=== PATIENT | male | born 1975 | race Caucasian/White ===

== ENCOUNTER 2023-03-31 11:00 | Emergency (ER) | payer BC, SELFPAY ==
[2023-03-31 11:01] VITALS: BP 145/93; PULSE 60; RESP 18; TEMP 36.6; O2SAT 97; BMI 36.5
[2023-03-31 11:15] LABS: Coronavirus 19, PCR Not Detected (NotDetected); Influenza A, PCR Not Detected (NotDetected); Influenza B, PCR Not Detected (NotDetected)
--- NOTE | 2023-03-31 11:25 | XR_ITS ---
PROCEDURE INFORMATION: Exam: XR Chest Exam date and time: 03/31/2023 11:20 AM Age: 47 years old Clinical indication: Cough and shortness of breath; Additional info: Cough. Smoker x whole life TECHNIQUE: Imaging protocol: Radiologic exam of the chest. Views: 2 views. COMPARISON: No relevant prior studies available. FINDINGS: Lungs: No focal airspace disease. Pleural spaces: Unremarkable. No pleural effusion. No pneumothorax. Heart/Mediastinum: Cardiomediastinal silhouette is within normal limits. Bones/joints: Unremarkable. IMPRESSION: No acute cardiopulmonary abnormality.
[2023-03-31 11:36] VITALS: BP 144/91; PULSE 70; O2SAT 99
[2023-03-31 11:45] VITALS: BP 124/88; PULSE 66; O2SAT 100
--- NOTE | 2023-03-31 11:59 | HMH.EDGENADL ---
Discharge Plan Disposition Patient Disposition: Home, Self-Care Prescriptions Prescriptions: New albuterol sulfate 90 mcg/actuation HFA aerosol inhaler 4 inh inhalation Q4H PRN (Reason: shortness of breath or wheezing) Qty: 8.5 0RF Rx Instructions: 4 puffs every 4 hours for 48 hours then as needed for shortness of breath or wheezing following amoxicillin-pot clavulanate 875-125 mg tablet 1 tab PO BID 7 Days Qty: 14 0RF No Action azithromycin 250 mg tablet 250 mg PO QDAY 5 Days Qty: 6 0RF Rx Instructions: ii tabs day one, i tab days 2-5 methocarbamol 500 mg tablet 500 mg PO DAILY Patient Comments: TAKE 1 TABLET BY MOUTH 2 TIMES DAILY. INDICATIONS: NEEDED ibuprofen 800 mg tablet 800 mg PO DAILY Patient Comments: TAKE 1 TABLET BY MOUTH 3 TIMES DAILY. INDICATIONS: NEEDED omeprazole 40 mg capsule,delayed release(DR/EC) 40 mg PO DAILY Referrals Follow up/Referrals: Deepak Quiros [Primary Care Provider] - See instructions Susan Delarosa MD [Physician] - See instructions (for evaluation of your probable COPD ) Clinical Impressions Clinical Impression: Bronchitis, Reactive airway disease, Encounter for smoking cessation counseling Discharge ED Provider: Larisa Chung General Adult HPI General Chief complaint: Upper Respiratory Infection Stated complaint: cough, SOA Time Seen by Provider: 03/31/23 11:18 Mode of Arrival: Ambulatory Source of Information: Patient Limitations: No Limitations Description of Symptoms (Recalled from ER Triage Doc. by RN): pt states he has had a productive cough, congestion, runy nose, and sore throat for a week, states he had a telehealth visit sunday where they prescribed him a zpack, denies fever, states sputum has been green and snot has been clear History of Present Illness HPI narrative: Patient is a 47-year-old male with a history of chronic smoking he smoked 1 pack/day for the last 30 years presents today with 1 week of productive cough congestion wheezing. States he had a telemedicine appointment with his primary care doctor was prescribed Z-Mekhi few days ago without any significant improvement in his symptoms. No steroids were administered he does not carry a diagnosis of COPD. Related Data Home Medications Medication Instructions Recorded Confirmed ibuprofen 800 mg tablet 800 mg PO DAILY 03/31/23 03/31/23 methocarbamol 500 mg tablet 500 mg PO DAILY 03/31/23 03/31/23 omeprazole 40 mg capsule,delayed 40 mg PO DAILY 03/31/23 03/31/23 release Previous Rx's Medication Instructions Recorded azithromycin 250 mg tablet 250 mg PO QDAY sinusitis 5 days #6 05/06/19 tabs albuterol sulfate 90 mcg/actuation 4 inh inhalation Q4H PRN shortness 03/31/23 aerosol inhaler of breath or wheezing #8.5 grams amoxicillin 875 mg-potassium 1 tab PO BID 7 days #14 tabs 03/31/23 clavulanate 125 mg tablet Allergies Allergy/AdvReac Type Severity Reaction Status Date / Time From Ketorolac Tromethamine Allergy Intermediate I-HIVES Uncoded 05/06/19 17:13 PCN (penicillin) Allergy Unknown Uncoded 05/06/19 17:13 [facility] Disclaimer: The information contained in this section may have been updated after the patient was seen, as this information can be updated by other users. Social History Smoking Status: Never smoker alcohol intake: current current occupational status: employed Travel in the last 8 weeks: None ROS Obtained: Yes All systems reviewed & no additional complaints except as documented Physical Exam General General appearance: alert Respiratory Respiratory exam: Present wheezes and other (Speaking in full sentences oxygen saturations normal on room air); Absent respiratory distress, stridor, accessory muscle use or prolonged expiratory phase Cardiovascular Cardiovascular exam: Present regular rate; Absent tachycardia Neurological Exam Neurological exam: Present alert and oriented [facility]
[2023-03-31 12:04] VITALS: BP 142/88; PULSE 91; RESP 18; TEMP 36.8
== END 2023-03-31 12:05 | disposition home or self-care (01) ==
PROVIDERS: Emergency Provider Student in an Organized Health Care Education/Training Program; PCP Family Medicine
DX: J20.9 Acute bronchitis, unspecified (principal); R06.02 Shortness of breath; J45.909 Unspecified asthma, uncomplicated; F17.210 Nicotine dependence, cigarettes, uncomplicated; Z71.6 Tobacco abuse counseling
CPT/HCPCS: 71046; 87636; 99283

== ENCOUNTER 2023-04-20 04:03 | Emergency (ER) | payer BC, SELFPAY ==
[2023-04-20 04:11] VITALS: BP 133/84; PULSE 77; RESP 15; TEMP 36.6; O2SAT 98; BMI 36.5
--- NOTE | 2023-04-20 04:13 | XR_ITS ---
PROCEDURE INFORMATION: Exam: XR Chest Exam date and time: 04/20/2023 4:15 AM Age: 47 years old Clinical indication: Cough; Additional info: Cough recent bronchitis TECHNIQUE: Imaging protocol: Radiologic exam of the chest. Views: 1 view. COMPARISON: CR XR CHEST 2V 03/31/2023 11:20 AM FINDINGS: Lungs: Unremarkable. No consolidation. Pleural spaces: Unremarkable. No pleural effusion. No pneumothorax. Heart/Mediastinum: Unremarkable. No cardiomegaly. Bones/joints: Unremarkable. IMPRESSION: No acute findings.
--- NOTE | 2023-04-20 04:20 | HMH.EDGENADL ---
Discharge Plan Disposition Patient Disposition: Home, Self-Care Condition: Fair Prescriptions Prescriptions: New Paxlovid 300 mg (150 mg x 2)-100 mg tablets,dose pack See Rx Instructions .ROUTE .COMPLEX Qty: 30 0RF Rx Instructions: take TWO 150 mg tablets of nirmatrelvir with ONE 100 mg tablet of ritonavir twice daily for 5 days No Action azithromycin 250 mg tablet 250 mg PO QDAY 5 Days Qty: 6 0RF Rx Instructions: ii tabs day one, i tab days 2-5 methocarbamol 500 mg tablet 500 mg PO DAILY Patient Comments: TAKE 1 TABLET BY MOUTH 2 TIMES DAILY. INDICATIONS: NEEDED ibuprofen 800 mg tablet 800 mg PO DAILY Patient Comments: TAKE 1 TABLET BY MOUTH 3 TIMES DAILY. INDICATIONS: NEEDED omeprazole 40 mg capsule,delayed release(DR/EC) 40 mg PO DAILY albuterol sulfate 90 mcg/actuation HFA aerosol inhaler 4 inh inhalation Q4H PRN (Reason: shortness of breath or wheezing) Qty: 8.5 0RF Rx Instructions: 4 puffs every 4 hours for 48 hours then as needed for shortness of breath or wheezing following amoxicillin-pot clavulanate 875-125 mg tablet 1 tab PO BID 7 Days Qty: 14 0RF Referrals Follow up/Referrals: Deepak Quiros [Primary Care Provider] - See instructions Activity Restrictions/Add. Instructions Additional Instructions/Restrictions: You were evaluated in the emergency department today for cough. You are positive for COVID. You have been prescribed Paxlovid, take this as directed. Avoid contact with other people per CDC recommendations for the next 5 days. Wash your hands to avoid spread. Make an appointment with your primary care physician for reevaluation in 2 to 3 days. Return to the emergency department with any new, worsening, or otherwise concerning symptoms. Clinical Impressions Clinical Impression: COVID-19 Discharge ED Provider: Anshu Navas General Adult HPI General Chief complaint: Upper Respiratory Infection Stated complaint: cough, SOA Time Seen by Provider: 04/20/23 04:07 History of Present Illness HPI narrative: This 47-year-old male with a history of COPD and anxiety presents to the emergency department with concerns of cough. Patient states he was recently treated for bronchitis and completed azithromycin and amoxicillin 7 to 10 days ago. Patient states he had done well for the last week and in the last 24 hours developed progressive cough again. Patient states he has taken his albuterol inhaler multiple times in the last 6 hours without significant improvement. He states he is not short of breath but has a nagging dry cough. He states it is nonproductive at this time. He denies any other positive review of systems. Related Data Home Medications Medication Instructions Recorded Confirmed ibuprofen 800 mg tablet 800 mg PO DAILY 03/31/23 03/31/23 methocarbamol 500 mg tablet 500 mg PO DAILY 03/31/23 03/31/23 omeprazole 40 mg capsule,delayed 40 mg PO DAILY 03/31/23 03/31/23 release Previous Rx's Medication Instructions Recorded azithromycin 250 mg tablet 250 mg PO QDAY sinusitis 5 days #6 05/06/19 tabs albuterol sulfate 90 mcg/actuation 4 inh inhalation Q4H PRN shortness 03/31/23 aerosol inhaler of breath or wheezing #8.5 grams amoxicillin 875 mg-potassium 1 tab PO BID 7 days #14 tabs 03/31/23 clavulanate 125 mg tablet nirmatrelvir 300 mg (150 mg See Rx Instructions PO .COMPLEX 04/20/23 x2)-ritonavir 100 mg tablet,dose #30 tabs pack (Paxlovid) Allergies Allergy/AdvReac Type Severity Reaction Status Date / Time From Ketorolac Tromethamine Allergy Intermediate I-HIVES Uncoded 05/06/19 17:13 PCN (penicillin) Allergy Unknown Uncoded 05/06/19 17:13 [facility] Disclaimer: The information contained in this section may have been updated after the patient was seen, as this information can be updated by other users. Social History Smoking Status: Unknown if ever smoked alcohol intake: current cu
[2023-04-20 04:30] LABS: Influenza A, PCR Not Detected (NotDetected); Influenza B, PCR Not Detected (NotDetected)
[2023-04-20 04:35] VITALS: PULSE 69; PULSE 72
[2023-04-20 04:38] LABS: Basophils % 0.4 % (0.1-2.0); Eosinophils # 0.1 K/mm3 (0.0-0.4); Hematocrit 45.9 % (42.0-52.0); Hemoglobin 14.9 g/dL (14.1-18.0); Lymphocytes # 1.1 K/mm3 (0.7-4.5); Lymphocytes % 16.7 % (10-50); Mean Corpuscular HGB Conc 32.5 g/dL (31.8-35.4); Mean Corpuscular Hemoglobin 31.3 pg (27.0-31.2); Mean Corpuscular Volume 96.2 fl (80-94); Mean Platelet Volume 7.3 fl (7.4-10.4); Monocytes # 0.2 K/mm3 (0.1-1.0); Monocytes % 3.8 % (1.7-9.3); Neutrophils # 4.9 K/mm3 (1.8-7.8); Platelet Count 286 K/mm3 (142-424); Red Blood Count 4.78 M/mm3 (4.60-6.20); Red Cell Distribution Width 13.2 % (11.5-17.5); White Blood Count 6.3 K/mm3 (4.8-10.8)
[2023-04-20 04:39] LABS: Chloride 104 mmol/L (98-107)
[2023-04-20 04:40] LABS: Potassium 3.9 mmoL/L (3.5-5.1); Sodium 137 mmol/L (136-145)
[2023-04-20 04:42] LABS: Alanine Aminotransferase 40 U/L (12-78); Alkaline Phosphatase 133 U/L (38-126); Aspartate Amino Transferase 36 U/L (17-59); Bilirubin,Total 0.6 mg/dl (0.2-1.3); Blood Urea Nitrogen 12 mg/dl (9-20); Creatinine Clearance Estimated 197 mL/min (50-200); Estimated Glomerular Filt Rate 91 ml/min (>60); GFR (African American) 110 ML/MIN (>60)
[2023-04-20 04:43] LABS: Albumin Level 4.4 g/dl (3.5-5.0); Albumin/Globulin Ratio 1.5 (1.1-1.8); Anion Gap 10.9 mEq/L (5-15); Calcium 8.9 mg/dl (8.4-10.2); Carbon Dioxide 26 mmol/L (22.0-30.0); Glucose 127 mg/dl (74-100); Total Protein,Serum 7.4 g/dl (6.3-8.2)
[2023-04-20 04:50] LABS: Coronavirus 19, PCR Detected (NotDetected)
--- NOTE | 2023-04-20 05:13 | PC.NURSE ---
contacted kashmir gomez to have her find out why read isn't back yet. states they are assigned but not read yet
[2023-04-20 05:53] VITALS: BP 132/80; PULSE 77; RESP 16; TEMP 36.7; O2SAT 98
== END 2023-04-20 05:55 | disposition home or self-care (01) ==
PROVIDERS: Emergency Provider Emergency Medicine; PCP Family Medicine
DX: U07.1 COVID-19 (principal); R06.02 Shortness of breath; R05.9 Cough, unspecified; J44.9 Chronic obstructive pulmonary disease, unspecified; F17.210 Nicotine dependence, cigarettes, uncomplicated
CPT/HCPCS: 71045; 80053; 85025; 87636; 99283